=== PATIENT | female | born 1990 | race African-American/Black ===

== ENCOUNTER 2024-02-09 12:25 | Inpatient (IN) | payer BC ==
[2024-02-09] MEDS ORDERED: BUTORPHANOL TARTRATE 1 MG/ML VIAL IVPB PRN (13:37)
[2024-02-09] MEDS: DINOPROSTONE 10 MG VAGINAL SUPPOSITORY VG ONE (14:30)
[2024-02-09 15:29] VITALS: BMI 30.4
[2024-02-09] MEDS: ELECTROLYTE-148 SOLN 1,000 ML IV SCH (20:05)
[2024-02-09 20:38] LABS: URINE AMPHETAMINES NEGATIVE (NEGATIVE)
[2024-02-09 20:39] LABS: COCAINE, UR NEGATIVE (NEGATIVE); METHADONE, UR NEGATIVE (NEGATIVE); OPIATES, URI NEGATIVE (NEGATIVE); URINE BARBITURATES NEGATIVE (NEGATIVE)
[2024-02-09 20:40] LABS: PHENCYCLIDINE,URINE NEGATIVE (NEGATIVE); URINE BENZODIAZEPINES NEGATIVE (NEGATIVE)
[2024-02-09] MEDS ORDERED: OXYTOCIN 30 UNITS in 0.9% NS 30 UNIT/500 ML INFUS.BAG IVPB ONE (20:41)
[2024-02-09] MEDS: OXYTOCIN 30 UNITS in 0.9% NS 30 UNIT/500 ML INFUS.BAG IVPB SCH (20:44)
[2024-02-10] MEDS ORDERED: METHYLERGONOVINE MALEATE 0.2 MG/1 ML AMP IM PRN (00:12)
[2024-02-10] MEDS ORDERED: IBUPROFEN 800 MG/8 ML IJ IVPB PRN (00:12)
[2024-02-10] MEDS: CITRIC ACID/SODIUM CITRATE 30 ML UNIT-DOSE CUP PO ONE (00:15)
[2024-02-10] MEDS: PROMETHAZINE HCL 25 MG/1 ML VIAL IVPB ONE (00:21)
[2024-02-10] MEDS ORDERED: morphine SULFATE/PF 1 MG/2 ML (2cc Syringe - QUVA) ONE (00:48)
[2024-02-10] MEDS ORDERED: FENTANYL CITRATE/PF 50 MCG/ML VIAL ONE (00:48)
[2024-02-10] MEDS ORDERED: AZITHROMYCIN IVPB 500 MG/250 ML BAG IVPB ONE (01:01)
[2024-02-10] MEDS ORDERED: KETOROLAC TROMETHAMINE 30 MG/1 ML VIAL ONE (01:24)
[2024-02-10] MEDS ORDERED: ceFAZolin SODIUM 1 GM VIAL ONE (01:24)
[2024-02-10] MEDS ORDERED: ONDANSETRON 4 MG/2 ML VIAL ONE (01:24)
[2024-02-10 01:45] LABS: CORD BASE EXCESS -1.6 mmol/L (0-2); CORD HCO3 26.1 mmHg (20-29); CORD PCO2 54.7 mmHg (30-78); CORD pH 7.296 (7.14-7.44)
[2024-02-10 01:53] LABS: CORD BASE EXCESS -0.2 mmol/L (0-2); CORD HCO3 26.1 mmHg (20-29); CORD PCO2 48.4 mmHg (30-78); CORD pH 7.35 (7.14-7.44)
[2024-02-10] MEDS: OXYTOCIN 20 UNITS in 0.9% NS 20 UNIT/1,000 ML INFUS.BAG IV SCH (01:55)
[2024-02-10] MEDS: PRENATAL VITAMINS W/ FOLIC ACID TABLET (FP) PO SCH (10:47)
[2024-02-10] MEDS: FERROUS SO4 325 MG TABLET (FP) PO SCH (10:47)
[2024-02-10] MEDS ORDERED: oxyCODONE HCL 5 MG TABLET PO PRN ×2 (12:12)
[2024-02-10] MEDS: IBUPROFEN 600 MG TABLET (FP) PO PRN (15:41)
[2024-02-11] MEDS ORDERED: BISACODYL 10 MG SUPP.RECT RC PRN (00:12)
[2024-02-11 07:57] LABS: BASO % 0.6 % (0-2.0); EOS % 1.4 % (0-4.5); HEMOGLOBIN 12.3 GM/dL (10.7-15.3); LYMPH % 16.3 % (8-40); MCH 31.6 pg (25.7-33.7); MCHC 33.2 g/dl (32.0-36.0); MEAN CELL VOLUME 95.2 fl (80-96); MEAN PLT VOLUME 7.7 fl (7.5-11.1); MONO % 9.1 % (3.8-10.2); NEUT % 72.6 % (42.8-82.8); PLATELET COUNT 267 10^3/uL (134-434); RBC 3.88 M/mm3 (3.60-5.2); RDW 13.1 % (11.6-15.6); WHITE BLOOD COUNT 16.9 K/mm3 (4.0-10.0)
[2024-02-11] MEDS: SIMETHICONE 80 MG TAB.CHEW (FP) PO PRN (09:04)
[2024-02-11] MEDS: ACETAMINOPHEN 325 MG TABLET (FP) PO PRN (11:31)
[2024-02-11] MEDS: SENNOSIDES/DOCUSATE COMBO (SENNA PLUS) TABLET (UD) PO PRN (21:46)
[2024-02-12 10:32] VITALS: BP 120/85; PULSE 99; RESP 16; TEMP 97.7
== END 2024-02-12 12:50 | disposition home or self-care (01) | DRG 787 ==
LOC: JLDR 12:25 → J3W 02-10 05:03
PROVIDERS: ADMIT Obstetrics & Gynecology; ATTEND Obstetrics & Gynecology
PROC: 10D00Z1 Extraction of Products of Conception, Low, Open Approach (ICD-10-PCS; principal; 2024-02-10)
DX: O76 Abnormality in fetal heart rate and rhythm complicating labor and delivery (principal); O41.03X0 Oligohydramnios, third trimester, not applicable or unspecified; O36.5930 Maternal care for other known or suspected poor fetal growth, third trimester, not applicable or unspecified; Z3A.34 34 weeks gestation of pregnancy; Z37.0 Single live birth
CPT/HCPCS: 36415; 36600; 80307; 82803; 85025; 86850; 86900; 86901; 88307-TC; 94010